=== PATIENT | female | born 1980 | race Caucasian/White ===

== ENCOUNTER 2016-09-09 23:23 | Emergency (ER) | payer OTHER ==
[~2016-09-09] VITALS: Ht 160 cm; Wt 73.1 kg
[~2016-09-09 23:23] MED LIST: CLR/5 PO; NAPR-1169 PO; TRAZ50TA35 PO
[2016-09-09 23:27] VITALS: TEMP 36.9; Ht 160 cm; Wt 73.1 kg
[2016-09-09] MEDS ORDERED: IBUPROFEN 800 MG TAB PO STA (23:51)
--- NOTE | 2016-09-09 23:58 | EMERGENCY ROOM VISIT NOTE ---
History Report prepared by Fang: Dorcas Fagan Under the Supervision of: Dr. Marcia Acosta D.O. First contact with patient: 23:36 Chief Complaint: FALL Stated Complaint: RIB/ARM PAIN/FALL History of Present Illness The patient is a 36 year old female who presents to the Emergency Room with complaints of persistent right hand pain that began one day ago. She currently rates her discomfort as a 3/10 in severity. The patient states that last evening she was working and had slipped on water causing her to fall. She states that she had hit her right arm and hand off of the table. The patient denies hitting her head or any loss of consciousness. She states that her pain did not start until an hour after the incident. The patient states that she went to work today and mentioned pain in her hand to her boss, and was told to go to the emergency department. She denies any active medical problems. Source of History: patient Onset: one day ago Position: hand (right) Symptom Intensity: 3/10 Timing: other (persistent) Associated Symptoms: No LOC Review of Systems See HPI for pertinent positives & negatives. A total of 10 systems reviewed and were otherwise negative. Past Medical & Surgical Medical Problems: (1) No Known Active Medical Problems (2) Family History No significant family history Social History Smoking Status: Current Some Day Smoker Marital Status: single Occupation Status: employed Current/Historical Medications No Active Prescriptions or Reported Meds Allergies Coded Allergies: No Known Allergies (Unverified , 09/09/16) Physical Exam Vital Signs Date Time Temp Pulse Resp B/P Pulse Ox O2 Delivery O2 Flow Rate FiO2 09/10/16 01:13 62 19 110/72 95 09/09/16 23:27 36.9 75 18 125/79 98 Room Air Physical Exam HEENT: Head - normocephalic and atraumatic Pupils are equal, round, and reactive to light. Extraocular eye muscles are intact, and sclera are anicteric. Nose - moist nasal mucosa without discharge. Mouth - moist buccal mucosa. Oropharynx is nonerythematous and there is no tonsillar exudate or edema noted. Neck: Supple; cervical lymphadenopathy or pain to palpation over the posterior cervical spine. Heart: Regular rate and rhythm. There is a normal S1 and S2 with no murmurs, clicks, or gallops appreciated. Lungs: Clear to auscultation bilaterally with no wheezes, rales, or rhonchi. Abdomen: Soft, completely nontender, nondistended, with good bowel sounds. There are no palpable pulsatile masses or hepatosplenomegaly. There is no guarding, rigidity, or rebound noted. Extremities: Contusions and edema to right forearm, pain with palpation of wrist , forearm, and elbow. No evidence of cyanosis, clubbing. There are easily palpable peripheral pulses. Skin: Pedunculated excoriated lesions on the dorsal aspect of both hands and both ankles. warm and dry with good turgor Medical Decision & Procedures ER Provider Diagnostic Interpretation: 3 view elbow x-ray: no fracture no saddle sign, no dislocation. 2 view forearm x-ray: no obvious fracture 3 view wrist x-ray: no acute fracture identified. Medications Administered Medications (Trade) Dose Ordered Sig/Constantino Route Start Time Stop Time Status Last Admin Dose Admin Ibuprofen (Motrin Tab) 800 mg NOW STAT PO 09/09/16 23:51 09/09/16 23:55 DC 09/10/16 00:02 800 MG Procedure The patient was treated with Motrin Tab 800 mg PO. ED Course 2339: Through the help of uptwister tender, The patient was evaluated in room B10. A complete history and physical exam was performed. 2351: Ordered Motrin Tab 800 mg PO. The patient went for plain films of her right wrist, forearm, and elbow 0049: I reevaluated the patient and she is doing fine. I used the uptwister tender to go over the x-ray results. She verbalized complete understanding and agreement. She is ready to go home. Medical Decision The patient is a 36 year old female who presents to the ED with right hand pain. Differential diagnosis includes wrist sprain, elbow sprain, wrist fracture , elbow fracture, forearm fracture. X-rays of the right upper extremity were obtained and were negative for fracture. It seems that the patient has a contusion to her forearm along with a strain to the right wrist. I've encouraged her to use NSAIDs for pain. She will need to be off work for the next couple of days because the pain in the right upper extremity. I encouraged her to follow-up with employee health through her work if the pain persists Impression Primary Impression: Contusion of right forearm Additional Impression: Strain of right wrist Scribe Attestation The scribe's documentation has been prepared under my direction and personally reviewed by me in its entirety. I confirm that the note above accurately reflects all work, treatment, procedures, and medical decision making performed by me. Departure Information Dispostion Home / Self-Care Prescriptions No Active Prescriptions or Reported Meds Referrals [facility] (PCP) Forms HOME CARE DOCUMENTATION FORM, IMPORTANT VISIT INFORMATION Patient Instructions Contusion Bone, My [facility], Strains Sprains Self Care Additional Instructions Rest with your right arm elevated. Motrin - 600mg every 6 hours with food for pain. No work for 2 days Problem Qualifiers Primary Impression: Contusion of right forearm Encounter type: initial encounter Qualified Codes: S50.11XA - Contusion of right forearm, initial encounter Additional Impression: Strain of right wrist Encounter type: initial encounter Qualified Codes: S66.911A - Strain of unspecified muscle, fascia and tendon at wrist and hand level, right hand, initial encounter
[2016-09-10 01:13] VITALS: BP 110/72; PULSE 62; O2SAT 95
--- NOTE | 2016-09-10 06:37 | DIAGNOSTIC IMAGING REPORT ---
RIGHT WRIST MIN 3 VIEWS ROUTINE CLINICAL HISTORY: Right wrist pain status post trauma COMPARISON: None. DISCUSSION: No acute fractures or dislocations are visualized. There is no evidence for soft tissue swelling. IMPRESSION: No acute fractures identified. Electronically signed by: Cong Armstrong M.D. 09/10/2016 6:36 AM Dictated Date/Time: 09/10/2016 6:35 AM
--- NOTE | 2016-09-10 06:38 | DIAGNOSTIC IMAGING REPORT ---
RIGHT FOREARM 2 VIEWS ROUTINE CLINICAL HISTORY: Right forearm pain status post trauma COMPARISON: None. DISCUSSION: No acute fractures or dislocations are visualized. IMPRESSION: No acute fractures Electronically signed by: Cong Armstrong M.D. 09/10/2016 6:37 AM Dictated Date/Time: 09/10/2016 6:36 AM
--- NOTE | 2016-09-10 06:39 | DIAGNOSTIC IMAGING REPORT ---
RIGHT ELBOW MIN 3 VIEWS ROUTINE CLINICAL HISTORY: Right elbow pain status post trauma COMPARISON: None. DISCUSSION: The fat pads are not displaced. No acute fractures or dislocations are visualized. IMPRESSION: No fractures identified. Electronically signed by: Cong Armstrong M.D. 09/10/2016 6:37 AM Dictated Date/Time: 09/10/2016 6:37 AM
== END 2016-09-10 01:15 | disposition home or self-care (01) ==
LOC: EDBD 23:23 → C.EDB 23:25
DX: S50.11XA Contusion of right forearm, initial encounter (principal); S63.501A Unspecified sprain of right wrist, initial encounter; W01.0XXA Fall on same level from slipping, tripping and stumbling without subsequent striking against object, initial encounter; F17.200 Nicotine dependence, unspecified, uncomplicated

== ENCOUNTER 2017-08-02 16:16 | Emergency (ER) | payer SELFPAY ==
[~2017-08-02] VITALS: Ht 157.5 cm; Wt 70.7 kg
[2017-08-02 16:35] VITALS: Ht 157.5 cm; Wt 70.7 kg
[2017-08-02] MEDS ORDERED: KETOROLAC TROMETHAMINE 30 MG/ML VIAL IV STA (17:03)
[2017-08-02] MEDS ORDERED: DEXAMETHASONE INJ 10 MG in SYRINGE 0 ML IV STA (17:03)
[2017-08-02] MEDS ORDERED: DiphenhydrAMINE HCL 50 MG/ML VIAL IV STA (17:03)
[2017-08-02] MEDS ORDERED: HYDROCORTISONE 2.5% CR 30 GM TUBE EXT STA (17:03)
[2017-08-02 17:56] LABS: BASO % 0.2 %; BASO ABS # 0.01 K/uL (0-0.2); EOS ABS # 0.06 K/uL (0-0.5); HEMATOCRIT 28.2 % (37-47); HEMOGLOBIN 8.6 g/dL (12.0-16.0); IG# 0.01 K/uL (0.00-0.02); LYMPH % 38.3 %; LYMPH ABS # 2.22 K/uL (1.2-3.4); MEAN CELL VOLUME 71.9 fL (80-100); MEAN CORPUSCULAR HEMOGLOBIN 21.9 pg (25-34); MEAN CORPUSCULAR HGB CONC 30.5 g/dl (32-36); MEAN PLATELET VOLUME 9.7 fL (7.4-10.4); MONO % 6.7 %; MONO ABS # 0.39 K/uL (0.11-0.59); NEUT % 53.6 %; NEUT ABS # 3.11 K/uL (1.4-6.5); PLATELET COUNT 304 K/uL (130-400); RED CELL DISTRIBUTION WIDTH CV 18.4 % (11.5-14.5); RED CELL DISTRIBUTION WIDTH SD 48.3 fL (36.4-46.3)
[2017-08-02] MEDS ORDERED: DEXAMETHASONE **PF** INJ 10 MG/ML VIAL ONE (18:08)
[2017-08-02 18:19] LABS: ALBUMIN 3.6 gm/dl (3.4-5.0); ALT/SGPT 20 U/L (12-78); BLOOD UREA NITROGEN 13 mg/dl (7-18); CALCIUM 8.5 mg/dl (8.5-10.1); CARBON DIOXIDE 24 mmol/L (21-32); GLUCOSE 79 mg/dl (70-99); POTASSIUM 3.3 mmol/L (3.5-5.1); SODIUM 138 mmol/L (136-145)
[2017-08-02] MEDS ORDERED: POTASSIUM CHLORIDE 20 MEQ/15 ML UDC PO STA (18:22)
[2017-08-02 18:30] LABS: ALKALINE PHOSPHATASE 71 U/L (45-117); AST/SGOT 18 U/L (15-37); TOTAL PROTEIN 7.4 gm/dl (6.4-8.2)
--- NOTE | 2017-08-02 19:39 | DIAGNOSTIC IMAGING REPORT ---
PELVIS 1 OR 2 VIEW ROUTINE CLINICAL HISTORY: 37 years-old Female presenting with Pt c/o left hip pain. TECHNIQUE: Single frontal view of the pelvis was obtained. COMPARISON: None. FINDINGS: Sacroiliac joints, pubic symphysis, and hip joints congruent. Bony pelvis intact. Femoral necks intact. Arcuate lines of the sacrum intact. Right hemipelvis phlebolith noted. No advanced degenerative change. Focal sclerosis in the subcapital region of the left femoral neck suggested, possibly bone island. Lower lumbar spine normal. Moderate stool burden. IMPRESSION: 1. No acute osseous injury. 2. Sclerosis at the subcapital left femoral neck is indeterminate though possibly a bone island. This could be further evaluated with cross-sectional imaging as clinically indicated. Electronically signed by: Ariel Gandhi M.D. 08/02/2017 7:37 PM Dictated Date/Time: 08/02/2017 7:36 PM
--- NOTE | 2017-08-02 19:40 | DIAGNOSTIC IMAGING REPORT ---
L FEMUR 2 VIEWS ROUTINE CLINICAL HISTORY: 37 years-old Female presenting with Pt c/o left hip pain. TECHNIQUE: Frontal and lateral views of the left femur were obtained. COMPARISON: None. FINDINGS: Left hip joint and knee joint congruent. No acute fracture or malalignment. Focal sclerosis in the subcapital region of the left femoral neck localizes to the medullary space and is most consistent with a bone island. No degenerative change. IMPRESSION: 1. Focal sclerosis in the subcapital region of the left femoral neck localizes to the medullary space and is most consistent with a bone island. 2. No acute osseous injury. Electronically signed by: Ariel Gandhi M.D. 08/02/2017 7:38 PM Dictated Date/Time: 08/02/2017 7:37 PM
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
[2017-08-03] MEDS ORDERED: OXYC-57 PO (01:49)
[2017-08-03 02:41] VITALS: BP 117/63; PULSE 62; O2SAT 98
== END 2017-08-03 02:41 | disposition home or self-care (01) ==
LOC: EDBD 16:16 → C.EDC 16:18
DX: F39 Unspecified mood [affective] disorder (principal); M25.552 Pain in left hip; F17.200 Nicotine dependence, unspecified, uncomplicated; Z91.410 Personal history of adult physical and sexual abuse